=== PATIENT | male | born 1965 ===

== ENCOUNTER 2022-06-09 09:04 | Outpatient (CLI) | payer BC, SELFPAY ==
[2022-06-09 15:37] LABS: Albumin* 4.1 g/dL (3.3-5.0); Chloride* 105 mmol/L (96-114)
[2022-06-09 15:38] LABS: Potassium* 4.3 mmol/L (3.6-5.1); Sodium* 138 mmol/L (135-149)
[2022-06-09 15:40] LABS: Aspartate Amino Transferase* 24 U/L (12-35); Bilirubin Total* 0.3 mg/dL (0.1-1.5); Carbon Dioxide* 29 mmol/L (20-32); Cholesterol* 168 mg/dL (90-199); Creatinine* 0.9 mg/dL (0.5-1.5); Estimated Glomerular Filt Rate 101 ml/min; Total Protein* 6.5 g/dL (6.0-8.3)
[2022-06-09 15:41] LABS: Alanine Aminotransferase* 35 U/L (4-50); Alkaline Phosphatase* 71 U/L (40-150); Blood Urea Nitrogen* 13 mg/dL (7-30); Calcium* 9.2 mg/dL (8.4-10.6); Glucose* 130 mg/dL (60-115); HDL Cholesterol* 52 mg/dL (>=40); LDL Cholesterol Calculated 109 mg/dL (<100); Triglycerides* 36 mg/dL (40-149)
[2022-06-09 16:11] LABS: PSA Screen* 0.44 ng/mL (0.10-4.00)
== END 2022-06-09 09:05 | disposition home or self-care (01) ==
PROVIDERS: PCP Family Medicine; Visit Provider Family Medicine
DX: Z00.00 Encounter for general adult medical examination without abnormal findings (principal); R03.0 Elevated blood-pressure reading, without diagnosis of hypertension; Z13.6 Encounter for screening for cardiovascular disorders; Z12.5 Encounter for screening for malignant neoplasm of prostate
CPT/HCPCS: 80053; 80061; 84153

== ENCOUNTER 2022-11-20 09:17 | Emergency (ER) | payer BC, SELFPAY ==
[2022-11-20 09:48] VITALS: BP 127/89; PULSE 59; RESP 16; TEMP 36.2; O2SAT 97; BMI 30.1
== END 2022-11-20 11:23 | disposition left against medical advice (07) ==
PROVIDERS: PCP Family Medicine
DX: Z53.21 Procedure and treatment not carried out due to patient leaving prior to being seen by health care provider (principal)
CPT/HCPCS: 99199

== ENCOUNTER 2022-11-25 08:21 | Outpatient (CLI) | payer BC, SELFPAY ==
[2022-11-25 09:34] LABS: SARS Antigen* negative (Negative)
== END 2022-11-25 08:22 | disposition home or self-care (01) ==
LOC: OP CLINIC 08:23
PROVIDERS: PCP Family Medicine; Visit Provider Surgery
DX: Z12.11 Encounter for screening for malignant neoplasm of colon (principal)
CPT/HCPCS: 45378; 87426; J2250; J3010

== ENCOUNTER 2023-10-13 14:19 | Outpatient (CLI) | payer BC, SELFPAY | END 2023-10-13 14:20 | disposition home or self-care (01) | PROVIDERS: PCP Family Medicine; Visit Provider Family Medicine | DX: E78.2 Mixed hyperlipidemia (principal) | CPT/HCPCS: 80053; 80061 ==

== ENCOUNTER 2024-07-04 07:54 | Outpatient (CLI) | payer BC, SELFPAY ==
--- OUTSIDE RECORDS SUMMARY | 2024-07-04 07:58 | XMS_ITS | Clinical Summary ---
Author Organization [facility] Address [address] [place] [address] Care Team Providers Care Ice Cream Van Vendor Name Role Phone Self-Referral, Patient Primary Care Provider Source Comments You are receiving this document as you are listed as the primary care provider,follow-up provider, or the patient has been referred to you for consultation.This is in compliance with the Medicare and[facility] EHR Incentive Program,which states Providers who transition their patient to another setting of careor provider of care or refers their patient to another provider of care shouldprovide summary care record for each transition of care or referral. [facility] Allergies No known active allergies Medications No known medications Social History Tobacco Use Types Packs/Day Years Used Date Smoking Tobacco: Never Assessed Sex and Gender Information Value Date Recorded Sex Assigned at Not on file Gender Identity Not on file Sexual Orientation Not on file Last Filed Vital Signs Vital Sign Reading Time Taken Comments Blood Pressure - - Pulse - - Temperature 36.6 ??C (97.8 ??F) 11/21/2022 9:55 AM CS T Respiratory Rate - - Oxygen Saturation - - Inhaled Oxygen Concentration - - Weight 95.3 kg (210 lb) 11/21/2022 9:55 AM NARCOTICS INVESTIGATOR Height 177.8 cm (5' 10) 11/21/2022 9:55 AM NARCOTICS INVESTIGATOR Body Mass Index 30.13 11/21/2022 9:55 AM NARCOTICS INVESTIGATOR Plan of Treatment Health Maintenance Due Date Last Done Comments Colon Cancer Screening Plan Due 1967 Hep C Screening (Preventive Services) 1967 PSA Screening Discussion 1967 HIV Screening (Preventive Services) 1983 Adult Preventive Visit 1985 DTaP/Tdap/Td (1 - Tdap) 1986 HepB (1) 1986 Cholesterol 2002 Zoster/Shingles (1 of 2) 2017 COVID-19 Vaccine (4 - 2022-2 4 season) 2023 11/14/2021, 03/09/2021, 02/16/2021 Influenza (#1) 2024 HepA Aged Out No longer eligi ble based on patient's age to complete this topic Hib Aged Out No longer eligi ble based on patient's age to complete this topic IPV (Polio) Aged Out No longer eligi ble based on patient's age to complete this topic MCV4 Aged Out No longer eligi ble based on patient's age to complete this topic Pneumococcal Aged Out No longer eligi ble based on patient's age to complete this topic Care Teams Ice Cream Van Vendor Relationship Specialty Start Date End Date Self-Referral, Patient, MD [address], [place] [id number] PCP - General 11/21/22
--- OUTSIDE RECORDS SUMMARY | 2024-07-04 07:58 | XMS_ITS | Clinical Summary ---
Author Organization [employer] [facility] Address [place], [place] [address] Care Team Providers Care Visitor Services Assistant Name Role Phone Pcp, No Primary Care Provider Unavailabl e Pcp, No Unavailable Unavailable Allergies No known active allergies Medications Medication Sig Dispensed Refills Start Date End Date Status cyclobenzaprine (FLEXERIL) 10 mg tabletIndications: Strain of lumbar region, initial encounter Take 1 tablet by mouth 3 times daily. 30 tablet 02/24/2018 Active ibuprofen (ADVIL; MOTRIN) 800 mg tabletIndications: Strain of lumbar region, initial encounter Take 1 tablet by mouth 3 times daily if needed. 60 tablet 02/24/2018 Active oxyCODONE-acetamin ophen, 5-325 mg, (PERCOCET) 5-325 mg per tabletIndications: Strain of lumbar region, initial encounter Take 1 tablet by mouth every 4 hours if needed for Pain Max acetaminophen dose: 4000mg in 24 hrs. 15 tablet 02/24/2018 Active Active Problems No known active problems Family History Relation Name Status Comments Father Alive Mother Alive Social History Tobacco Use Types Packs/Day Years Used Date Smoking Tobacco: Former Cigarettes 0.5 20 1 5 - 2014 Smokeless Tobacco: Never Alcohol Use Standard Drinks/Week Comments Yes 1 (1 standard drink = 0.6 oz pur e alcohol) occasssional Sex and Gender Information Value Date Recorded Sex Assigned at Not on file Gender Identity Not on file Sexual Orientation Not on file Obstetrics History Last Filed Vital Signs Vital Sign Reading Time Taken Comments Blood Pressure 135/94 02/24/2018 3:37 PM CDT Pulse 86 02/24/2018 3:37 PM CDT Temperature 36.6 ??C (97.8 ??F) 02/24/2018 3:37 PM CD T Respiratory Rate 20 02/24/2018 3:37 PM CDT Oxygen Saturation 98% 02/24/2018 3:37 PM CDT Inhaled Oxygen Concentration - - Weight 100 kg (220 lb 6.4 oz) 12/12/2016 12:47 P M GREEN MATERIAL VALUE ADDED ASSESSOR Height 177.8 cm (5' 10) 12/12/2016 12:47 PM GREEN MATERIAL VALUE ADDED ASSESSOR Body Mass Index 31.62 12/12/2016 12:47 PM GREEN MATERIAL VALUE ADDED ASSESSOR Plan of Treatment Health Maintenance Due Date Last Done Comments Tdap 1978 HIV for age 15-65 1982 Hepatitis C screening for ag e 18-79 1985 Tetanus booster 1987 Colonoscopy through age 75 2012 Zoster (shingles) series for age 50+ (1 of 2) 2017 BMI (ht and wt on same day) for age 18+ 12/12/2017 12/12/2016 Depression screening for age 12+ 12/12/2017 12/12/2016 Lipids for age 45-75 12/12/2021 12/12/2016 COVID-19 vaccine series (2022-24 season) 2023 03/09/2021, 02/16/2021 Influenza for age 50-64 07/24/2024 Pneumococcal series for age 6-64 Aged Out No longer eligible b ased on patient's age to complete this topic Procedures Procedure Name Priority Date/Time Associated Diagnosis Comments LIPID PANEL W REFLEX MEASURED LDL Routine 12/12/2016 2:26 PM GREEN MATERIAL VALUE ADDED ASSESSOR Routine general medical examination at a health care facility from Last 3 Months or Most Recently Relevant to Health Maintenance Results * LIPID PANEL W REFLEX MEASURED LDL (12/12/2016 2:26 PM GREEN MATERIAL VALUE ADDED ASSESSOR) CHOLESTEROL,TOTAL 166 100 - 199 mg/dL 12/12/2016 5:41 PM GREEN MATERIAL VALUE ADDED ASSESSOR [facility] TRIGLYCERIDES 36 <150 mg/dL 12/12/2016 5:41 PM GREEN MATERIAL VALUE ADDED ASSESSOR [facility] HDL CHOLESTEROL 57 >40 mg/dL 7 5:41 PM GREEN MATERIAL VALUE ADDED ASSESSOR [facility] NON-HDL CHOLESTEROL 109 <145 mg/dl 12/12/2016 5:41 PM GREEN MATERIAL VALUE ADDED ASSESSOR [facility] CHOL/HDL RATIO 2.91 <4.50 12/12/2016 5:41 PM GREEN MATERIAL VALUE ADDED ASSESSOR [facility] LDL CHOLESTEROL 102 <=130 mg/dL 12/12/2016 5:41 PM GREEN MATERIAL VALUE ADDED ASSESSOR [facility] PATIENT STATUS FASTING 12/12/2016 5:41 PM GREEN MATERIAL VALUE ADDED ASSESSOR [facility] Blood BLOOD SPECIMEN / Unknown Venipuncture / Unknown 12/12/2016 2:26 PM GREEN MATERIAL VALUE ADDED ASSESSOR 12/12/2016 2:26 PM GREEN MATERIAL VALUE ADDED ASSESSOR Perico Jaimes MD [facility] [address] [place] [address], from Last 3 Months or Most Recently Relevant to Health Maintenance Care Teams Visitor Services Assistant Relationship Specialty Start Date End Date Pcp, No . PCP - General 05/23/22 Pcp, No . 05/23/22
== END 2024-07-04 07:55 | disposition home or self-care (01) ==
PROVIDERS: PCP Family Medicine; Visit Provider Family Medicine
DX: R10.12 Left upper quadrant pain (principal); R63.4 Abnormal weight loss; Z12.5 Encounter for screening for malignant neoplasm of prostate
CPT/HCPCS: 80053; 82150; 83516; 83690; G0103

== ENCOUNTER 2024-07-08 07:38 | Outpatient (CLI) | payer BC, SELFPAY ==
--- OUTSIDE RECORDS SUMMARY | 2024-07-08 07:41 | XMS_ITS | Clinical Summary ---
Author Organization [employer] [facility] Address [place], [place] [address] Care Team Providers Care Buckle Stapler Name Role Phone Pcp, No Primary Care [...] lb 6.4 oz) 12/12/2016 12:47 P M AUTOMATION AND CONTROLS INSTRUCTOR Height 177.8 cm (5' 10) 12/12/2016 12:47 PM AUTOMATION AND CONTROLS INSTRUCTOR Body Mass Index 31.62 12/12/2016 12:47 PM AUTOMATION AND CONTROLS INSTRUCTOR Plan of Treatment Health Maintenance Due Date [...] REFLEX MEASURED LDL Routine 12/12/2016 2:26 PM AUTOMATION AND CONTROLS INSTRUCTOR Routine general medical examination at a health care facility from Last 3 Months or Most Recently Relevant to Health Maintenance Results * LIPID PANEL W REFLEX MEASURED LDL (12/12/2016 2:26 PM AUTOMATION AND CONTROLS INSTRUCTOR) CHOLESTEROL,TOTAL 166 100 - 199 mg/dL 12/12/2016 5:41 PM AUTOMATION AND CONTROLS INSTRUCTOR [facility] TRIGLYCERIDES 36 <150 mg/dL 12/12/2016 5:41 PM AUTOMATION AND CONTROLS INSTRUCTOR [facility] HDL CHOLESTEROL 57 >40 mg/dL 7 5:41 PM AUTOMATION AND CONTROLS INSTRUCTOR [facility] NON-HDL CHOLESTEROL 109 <145 mg/dl 12/12/2016 5:41 PM AUTOMATION AND CONTROLS INSTRUCTOR [facility] CHOL/HDL RATIO 2.91 <4.50 12/12/2016 5:41 PM AUTOMATION AND CONTROLS INSTRUCTOR [facility] LDL CHOLESTEROL 102 <=130 mg/dL 12/12/2016 5:41 PM AUTOMATION AND CONTROLS INSTRUCTOR [facility] PATIENT STATUS FASTING 12/12/2016 5:41 PM AUTOMATION AND CONTROLS INSTRUCTOR [facility] TR[facility] Blood BLOOD SPECIMEN / Unknown Venipuncture / Unknown 12/12/2016 2:26 PM AUTOMATION AND CONTROLS INSTRUCTOR 12/12/2016 2:26 PM AUTOMATION AND CONTROLS INSTRUCTOR Perico Jaimes MD [facility] [address] [place] [address], from Last 3 Months or Most Recently Relevant to Health Maintenance Care Teams Buckle Stapler Relationship Specialty Start Date End Date Pcp, No . PCP - General 05/23/22 Pcp, No . 05/23/22
--- OUTSIDE RECORDS SUMMARY | 2024-07-08 07:41 | XMS_ITS | Clinical Summary ---
Author Organization [facility] Address [address] [place] [address] Care Team Providers Care Nurse Transitional Name Role Phone Self-Referral, Patient Primary Care Provider Source Comments You are receiving this document as you are listed as the primary care provider,follow-up provider, or the patient has been referred to you for consultation.This is in compliance with the Medicare and[facility] Systemcaid EHR Incentive Program,which states Providers [...] 95.3 kg (210 lb) 11/21/2022 9:55 AM CRYPTOLOGIC LINGUIST Height 177.8 cm (5' 10) 11/21/2022 9:55 AM CRYPTOLOGIC LINGUIST Body Mass Index 30.13 11/21/2022 9:55 AM CRYPTOLOGIC LINGUIST Plan of Treatment Health Maintenance Due Date [...] age to complete this topic Care Teams Nurse Transitional Relationship Specialty Start Date End Date Self-Referral, Patient, MD [address] [place], [place] [phone] PCP - General 11/21/22
--- NOTE | 2024-07-08 08:00 | CRLHL7_ITS ---
For Patients: As a result of the Century Cures Act, medical imaging exams and procedure reports are released immediately into your electronic medical record. You may view this report before your referring provider. If you have questions, please contact your health care provider. Indication: LEFT UPPER QUADRANT PAIN FOR 2 MONTHS Technique: ABDOMEN PELVIS WITH ISOVUE 370 102 CC CONTRAST USED AND WATER PREP Please note that all CT scans at this facility use dose modulation, iterative reconstruction, and/or weight-based dosing when appropriate to reduce radiation dose to as low as reasonably achievable. Comparison: None Findings: Lung bases are clear. Slight decreased attenuation of the hepatic parenchyma. No intrahepatic mass. Spleen is normal. Normal gallbladder. Adrenal glands are normal. Normal kidneys. Pancreas is unremarkable. No hiatal hernia. Stomach appears normal. Normal bladder. Incidental calcification within the prostate. No bowel obstruction, free air, free fluid or abscess. The appendix is within normal limits. No intra-abdominal or intrapelvic adenopathy. Incidental small fat filled umbilical hernia. Bridging spur formation across the sacroiliac joints. No vertebral body compression fracture. Degenerative changes at both hips, right greater than left. Early vascular calcifications are present. Impression: No acute findings within the abdomen or pelvis. No evidence of pancreatitis or evidence of GI tract inflammation. Mild hepatic steatosis. Please note that all CT scans at this facility use dose modulation, iterative reconstruction, and/or weight-based dosing when appropriate to reduce radiation dose to as low as reasonably achievable. Dictated by Corey Miller MD @ 07/08/2024 2:42:30 PM (Electronically Signed)
== END 2024-07-08 07:39 | disposition home or self-care (01) ==
LOC: CT 07:39
PROVIDERS: PCP Family Medicine; Visit Provider Family Medicine
DX: R10.12 Left upper quadrant pain (principal); K76.0 Fatty (change of) liver, not elsewhere classified
CPT/HCPCS: 74177; Q9967

== ENCOUNTER 2024-07-18 07:27 | Outpatient (CLI) | payer BC, SELFPAY ==
--- OUTSIDE RECORDS SUMMARY | 2024-07-18 07:30 | XMS_ITS | Clinical Summary ---
Author Organization [employer] [facility] Address [place], [place] [address] Care Team Providers Care Hotel Clerk Name Role Phone Pcp, No Primary Care [...] lb 6.4 oz) 12/12/2016 12:47 P M HVAC INSTRUCTOR Height 177.8 cm (5' 10) 12/12/2016 12:47 PM HVAC INSTRUCTOR Body Mass Index 31.62 12/12/2016 12:47 PM HVAC INSTRUCTOR Plan of Treatment Health Maintenance Due [...] REFLEX MEASURED LDL Routine 12/12/2016 2:26 PM HVAC INSTRUCTOR Routine general medical examination at a health care facility from Last 3 Months or Most Recently Relevant to Health Maintenance Results * LIPID PANEL W REFLEX MEASURED LDL (12/12/2016 2:26 PM HVAC INSTRUCTOR) CHOLESTEROL,TOTAL 166 100 - 199 mg/dL 12/12/2016 5:41 PM HVAC INSTRUCTOR [facility] TRIGLYCERIDES 36 <150 mg/dL 12/12/2016 5:41 PM HVAC INSTRUCTOR [facility] HDL CHOLESTEROL 57 >40 mg/dL 7 5:41 PM HVAC INSTRUCTOR [facility] NON-HDL CHOLESTEROL 109 <145 mg/dl 12/12/2016 5:41 PM HVAC INSTRUCTOR [facility] LAB[facility] CHOL/HDL RATIO 2.91 <4.50 12/12/2016 5:41 PM HVAC INSTRUCTOR [facility] LDL CHOLESTEROL 102 <=130 mg/dL 12/12/2016 5:41 PM HVAC INSTRUCTOR [facility] PATIENT STATUS FASTING 12/12/2016 5:41 PM HVAC INSTRUCTOR [facility] Blood BLOOD SPECIMEN / Unknown Venipuncture / Unknown 12/12/2016 2:26 PM HVAC INSTRUCTOR 12/12/2016 2:26 PM HVAC INSTRUCTOR Perico Jaimes MD [facility] [address] [place] [address], from Last 3 Months or Most Recently Relevant to Health Maintenance Care Teams Hotel Clerk Relationship Specialty Start Date End Date Pcp, No . PCP - General 05/23/22 Pcp, No . 05/23/22
--- OUTSIDE RECORDS SUMMARY | 2024-07-18 07:30 | XMS_ITS | Clinical Summary ---
Author Organization [facility] Address [address] [place] [address] Care Team Providers Care Anesthesia Director Name Role Phone Self-Referral, Patient Primary Care Provider Source Comments You are receiving this document as you are listed as the primary care provider,follow-up provider, or the patient has been referred to you for consultation.This is in compliance with the Medicare and[facility],which states Providers who transition [...] 95.3 kg (210 lb) 11/21/2022 9:55 AM ORTHO ASSISTANT Height 177.8 cm (5' 10) 11/21/2022 9:55 AM ORTHO ASSISTANT Body Mass Index 30.13 11/21/2022 9:55 AM ORTHO ASSISTANT Plan of Treatment Health Maintenance Due Date [...] age to complete this topic Care Teams Anesthesia Director Relationship Specialty Start Date End Date Self-Referral, Patient, MD [place], [place] [phone] PCP - General 11/21/22
--- NOTE | 2024-07-18 08:58 | W.ANESCHARGE ---
Anesthesia Charges Start Date/Time Anesthesia Start Date: 07/18/24 Anesthesia Start Time: 08:33 Stop Date/Time Anesthesia Stop Date: 07/18/24 Anesthesia Stop Time: 08:55
--- NOTE | 2024-07-18 09:01 | W.ANESCHARGE ---
Anesthesia Charges Start Date/Time Anesthesia Start Date: 07/18/24 Anesthesia Start Time: 08:33 Stop Date/Time Anesthesia Stop Date: 07/18/24 Anesthesia Stop Time: 08:55
== END 2024-07-18 07:28 | disposition home or self-care (01) ==
LOC: OP CLINIC 07:28
PROVIDERS: PCP Family Medicine; Visit Provider Surgery
DX: R19.8 Other specified symptoms and signs involving the digestive system and abdomen (principal); K22.89 Other specified disease of esophagus; K31.89 Other diseases of stomach and duodenum
CPT/HCPCS: 00731; 43239; 88305; J2704; J3010

== ENCOUNTER 2025-03-23 20:15 | Emergency (ER) | payer BC, SELFPAY ==
--- OUTSIDE RECORDS SUMMARY | 2025-03-23 20:17 | XMS_ITS | Clinical Summary ---
Author Organization [facility] Address [address], [place] [address] Care Team Providers Care Medical Staff Coordinator Name Role Phone Self-Referral, Patient Primary Care Provider Source Comments You are receiving this document as you are listed as the primary care provider,follow-up provider, or the patient has been referred to you for consultation.This is in compliance with the Medicare and[facility] EHR Incentive Program,which states Providers who transition their patient to another setting of careor provider of care or refers their patient to another provider of care shouldprovide summary care record for each transition of care or referral. [facility] Allergies No known active allergies Medications No known medications Social History Tobacco Use Types Packs/Day Years Used Date Smoking Tobacco: Never Assessed Sex and Gender Information Value Date Recorded Sex Assigned at Not on file Legal Sex Male 4:14 AM CDT Gender Identity Not on file Sexual Orientation Not on file Last Filed Vital Signs Vital Sign Reading Time Taken Comments Blood Pressure - - Pulse - - Temperature 36.6 C (97.8 F) 11/21/2022 9:55 AM FIRESTOPPER INSTALLER Respiratory Rate - - Oxygen Saturation - - Inhaled Oxygen Concentration - - Weight 95.3 kg (210 lb) 11/21/2022 9:55 AM FIRESTOPPER INSTALLER Height 177.8 cm (5' 10) 11/21/2022 9:55 AM FIRESTOPPER INSTALLER Body Mass Index 30.13 11/21/2022 9:55 AM FIRESTOPPER INSTALLER Plan of Treatment Health Maintenance Due Date Last Done Comments Colon Cancer Screening Plan Due 1967 Hep C Screening (Preventive Services) 1967 PSA Screening Discussion 1967 HIV Screening (Preventive Services) 1983 Adult Preventive Visit 1985 DTaP/Tdap/Td Vaccine (1 - Tdap) 1986 HepB Vaccine (1) 1986 Cholesterol 2002 Pneumococcal Vaccine 50+ Yrs (1 of 1 - PCV) 2017 Zoster/Shingles Vaccine (1 o f 2) 2017 COVID-19 Vaccine (4 - 2023-2 5 season) 2024 11/14/2021, 03/09/2021, 02/16/2021 Influenza Vaccine (Season Ended) 2025 HepA Vaccine Aged Out No longer eligi ble based on patient's age to complete this topic Hib Vaccine Aged Out No longer eligi ble based on patient's age to complete this topic IPV (Polio) Vaccine Aged Out No longe r eligible based on patient's age to complete this topic MCV4 Vaccine Aged Out No longer eligi ble based on patient's age to complete this topic Meningococcal B Vaccine Aged Out No l onger eligible based on patient's age to complete this topic Insurance [facility] Care Teams Medical Staff Coordinator Relationship Specialty Start Date End Date Self-Referral, Patient, MD [address] [place], [place] [phone] PCP - General 11/21/22
--- OUTSIDE RECORDS SUMMARY | 2025-03-23 20:17 | XMS_ITS | Clinical Summary ---
Author Organization [employer] [facility] Address [address] [place] [address] Care Team Providers Care Coppersmith Apprentice Name Role Phone Pcp, No Primary Care Provider Unavailabl e Pcp, No Unavailable Unavailable Allergies No known active allergies Medications cyclobenzaprin e (FLEXERIL) 10 mg tabletIndicati ons:Strain of lumbar region, initial encounter Take 1 tablet by mouth 3 times daily. 30 tablet 8 Active ibuprofen (ADVIL; MOTRIN) 800 mg tabletIndicati ons:Strain of lumbar region, initial encounter Take 1 tablet by mouth 3 times daily if needed. 60 tablet 8 Active oxyCODONE-acet aminophen, 5-325 mg, (PERCOCET) 5-325 mg per tabletIndicati ons:Strain of lumbar region, initial encounter Take 1 tablet by mouth every 4 hours if needed for Pain Max acetaminophen dose: 4000mg in 24 hrs. 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 Not on file Not on file Obstetrics History Last Filed Vital Signs Vital Sign Reading Time Taken Comments Blood Pressure 135/94 02/24/2018 3:37 PM CDT Pulse 86 02/24/2018 3:37 PM CDT Temperature 36.6 C (97.8 F) 02/24/2018 3:37 PM CDT Respiratory Rate 20 02/24/2018 3:37 PM CDT Oxygen Saturation 98% 02/24/2018 3:37 PM CDT Inhaled Oxygen Concentration - - Weight 100 kg (220 lb 6.4 oz) 12/12/2016 12:47 P M CNP Height 177.8 cm (5' 10) 12/12/2016 12:47 PM CNP Body Mass Index 31.62 12/12/2016 12:47 PM CNP Plan of Treatment Health Maintenance Due Date Last Done Comments Tdap 1978 HIV for age 15-65 1982 Hepatitis C screening for age 18-79 1985 Tetanus booster 1987 Colonoscopy through age 75 2012 Pneumococcal series for age 50+ (1 of 1 - PCV) 2017 Zoster (shingles) series for age 50+ (1 of 2) 2017 BMI (ht and wt on same day) for age 18+ 12/12/2017 0 12/12/2016 Depression screening for age 12+ 12/12/2017 12/12/19 17 Lipids for age 45-75 12/12/2021 12/12/2016 COVID-19 vaccine series ( season) 2024 03/09/2021, 02/16/2021 Influenza Vaccine (Season Ended) 2025 Procedures Procedure Name Priority Date/Time Associated Diagnosis Comments LIPID PANEL W REFLEX MEASURED LDL Routine 12/12/2016 2:26 PM CNP Routine general medical examination at a health care facility from Last 3 Months or Most Recently Relevant to Health Maintenance Results * LIPID PANEL W REFLEX MEASURED LDL (12/12/2016 2:26 PM CNP) CHOLESTEROL,TOTAL 166 100 - 199 mg/dL 12/12/2016 5:41 PM CNP [facility] TRIGLYCERIDES 36 <150 mg/dL 12/12/2016 5:41 PM CNP [facility] HDL CHOLESTEROL 57 >40 mg/dL 7 5:41 PM CNP [facility] NON-HDL CHOLESTEROL 109 <145 mg/dl 12/12/2016 5:41 PM CNP [facility] CHOL/HDL RATIO 2.91 <4.50 12/12/2016 5:41 PM CNP [facility] LDL CHOLESTEROL 102 <=130 mg/dL 12/12/2016 5:41 PM CNP [facility] PATIENT STATUS FASTING 12/12/2016 5:41 PM CNP [facility] Blood BLOOD SPECIMEN / Unknown Venipuncture / Unknown 12/12/2016 2:26 PM CNP 12/12/2016 2:26 PM CNP us Perico Jaimes MD CHEMISTRY Final Resu lt [facility] [address] [place] [address], [place] from Last 3 Months or Most Recently Relevant to Health Maintenance Insurance [facility] Care Teams Coppersmith Apprentice Relationship Specialty Start Date End Date Pcp, No . PCP - General 05/23/22 Pcp, No . 05/23/22
[2025-03-23 20:23] VITALS: BP 126/86; PULSE 79; RESP 18; TEMP 36.6; O2SAT 96; BMI 30.7
--- NOTE | 2025-03-23 20:46 | PC.NURSE ---
spoke to dispatch, will let PD know to make a report
--- NOTE | 2025-03-23 21:01 | ED_ITS ---
HPI - General Adult General Date Seen: 03/23/25 Chief complaint: Animal Bite Stated complaint: L and R arm dog bite Time Seen by Provider: 03/23/25 20:48 History of Present Illness HPI narrative: 59-year-old male presenting to the ER today for evaluation of dog bites affecting both of his forearms. He was brought back to ER room 4. Nurses said he was nauseous and shaky so I put an order for Zofran 0 DT before I could go see him. I went to his room at 8:55 p.m. in the room was dark in [place]. Nurses and scared he reported that he actually had just gotten inpatient and left his room. He and his were seen leaving the ER. This patient left without being seen by medical provider... Related Data Previous Rx's ?Medication ?Instructions ?Recorded varenicline tartrate 1 mg tablet 1 mg PO BID #56 tabs 07/04/24 Allergies Allergy/AdvReac Type Severity Reaction Status Date / Time No Known Allergies Allergy Unverified 07/04/24 07:19 PFSH PFSH Family History (Updated 06/09/22 @ 10:19 by Joe Marquez MD) Father Myocardial infarction Social History (Updated 10/14/23 @ 10:41 by Koki Espana ~ [facility]) Narrative: Social: . No children. 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 Her name is Mariah and we have actually met several times. She is of [employer] seen in [employer] and has spoken at events locally. 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 From [facility]. Habits: He vapes tobacco. Quit smoking. No alcohol or recreational drug use. What is your current living situation?: I presently have a place to live Problems where you live: declined to answer In the past 12 months, utilities in danger of being shut off: no In past 12 months, lack of transportation kept you from medical appts, meetings, work, or getting things needed for daily living: no In the past 12 mos, have been you worried that your food would run out before you had money to buy more?: never true In the past 12 mos, the food you bought just didn't last and you didn't have money to buy more?: never true Smoking Status: Never smoker How often does anyone, including family, friends and others, physically hurt you : never How often does anyone, including family, friends and others, insult or talk down to you: never How often does anyone, including family, friends and others, threaten you with harm: never How often does anyone, including family, friends and others, scream or curse at you: never Exam Const: Vital Signs, click to edit/add: Vital Signs - 24 hr 03/23/25 20:23 Temperature 98 F Pulse Rate [Pulse Oximeter] 79 Respiratory Rate 18 Blood Pressure [Ri ght Upper Arm] 126/86 Pulse Oximetry 96 Oxygen Delivery Me thod Room Air Course Vital Signs Vital signs: Initial Vital Signs Temperature 98 F 03/23/25 20:23 Temperature Source Temporal Artery Scan 03/23/25 20:23 Pulse Rate 79 03/23/25 20:23 Respiratory Rate 18 03/23/25 20:23 Blood Pressure 126/86 03/23/25 20:23 Blood Pressure Mean 99 03/23/25 20:23 Blood Pressure Position Sitting 03/23/25 20:23 Pulse Oximetry 96 03/23/25 20:23 Oxygen Delivery Method Room Air 03/23/25 20:23 Vital Signs Temperature 98 F 03/23/25 20:23 Pulse Rate 79 03/23/25 20:23 Respiratory Rate 18 03/23/25 20:23 Blood Pressure 126/86 03/23/25 20:23 Pulse Oximetry 96 03/23/25 20:23 Oxygen Delivery Method Room Air 03/23/25 20:23 Temperature 98 F 03/23/25 20:23 Pulse Rate 79 03/23/25 20:23 Respiratory Rate 18 03/23/25 20:23 Blood Pressure 126/86 03/23/25 20:23 Pulse Oximetry 96 03/23/25 20:23 Oxygen Delivery Method Room Air 03/23/25 20:23 Discharge Plan Discharge Prescriptions: No Action varenicline tartrate 1 mg tablet 1 mg PO BID Qty: 56 4RF Follow Up/Referrals: Joe Marquez MD [Primary Care Provider] -
--- NOTE | 2025-03-23 21:05 | PC.NURSE ---
pt outside of room states, How do I get out of here, directed to door to lobby, pt ne walking behind states, he's just in a lot of pain, explained they were next to be seen, pt left
--- OUTSIDE RECORDS SUMMARY | 2025-03-23 21:09 | XMS_ITS | Clinical Summary ---
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
== END 2025-03-23 21:05 | disposition left against medical advice (07) ==
PROVIDERS: Emergency Provider Emergency Medicine; PCP Family Medicine
DX: Z53.21 Procedure and treatment not carried out due to patient leaving prior to being seen by health care provider (principal)
CPT/HCPCS: 99281

== ENCOUNTER 2025-07-26 07:58 | Outpatient (CLI) | payer BC, SELFPAY | END 2025-07-26 07:59 | disposition home or self-care (01) | LOC: NFLDREF 07-27 07:28 | PROVIDERS: PCP Family Medicine; Referring Provider Family Medicine; Visit Provider Family Medicine | DX: E78.5 Hyperlipidemia, unspecified (principal); Z13.1 Encounter for screening for diabetes mellitus | CPT/HCPCS: 80061; 82947 ==